=== PATIENT | female | born 1950 | race Caucasian/White ===

== ENCOUNTER → 2017-09-08 | Outpatient (CLI) | payer MEDICARE, MEDICAID, SELFPAY | PROVIDERS: Visit Provider Emergency Medicine | DX: R19.7 Diarrhea, unspecified (principal) | CPT/HCPCS: 87507 ==

== ENCOUNTER 2017-12-05 12:19 | Observation (INO) | payer MEDICARE, MEDICAID, SELFPAY ==
[2017-12-05] VITALS (7 sets, daily range): BP systolic 123–145; BP diastolic 73–84; PULSE 64–89; RESP 18–20; TEMP 36.6–37; O2SAT 91–100; BMI 24.9; BMI 23.0
--- NOTE | 2017-12-05 12:51 | XR_ITS ---
XR chest 2V HISTORY: ITS.REASON: cp. soa and cough. ORDERING PHYSICIAN: Jailyn Fuller MD PATIENT AGE: 67 years COMPARISON: 05/13/2017 FINDINGS: Cardiomegaly with pulmonary venous congestion consistent with CHF. There has been prior median sternotomy with bivalvular replacement. There is chronic blunting of the right CP angle. Curly B lines are present suggesting interstitial edema. No acute bony anomalies. Coronary artery stents are present. IMPRESSION: Congestive heart failure with interstitial edema. Postsurgical changes. Cardiac, evaluate response to left a message on her answering machine, and mechanical. Spleen measures
--- NOTE | 2017-12-05 12:52 | HMH.EDGENADL ---
ED Disposition Clinical Impression: Chest pain, CAD (coronary artery disease), A-fib, Congestive heart failure Disposition: Still a Patient Condition on Discharge: Fair Referrals: Zoltan Plata MD [Primary Care Provider] - - Critical Care Critical Care Time: No Attestation: On 12/05/17, the high probability of a clinically significant, sudden or life threatening deterioration of the following system(s) required my full and direct attention, intervention and personal management. The time I documented below is in addition to time spent performing reported procedures but includes the following listed in this critical care notation. Medical Decision Making - Medical Records Medical records reviewed: Yes: I reviewed the patient's medical records. Vital Signs: 12/05/17 12:19 12/05/17 13:19 Temperature 97.8 F Temperature Source Oral Pulse Rate [Right Brachial] 67 66 Respiratory Rate 18 20 Blood Pressure [Right Arm] 145/84 Blood Pressure Mean [Right Arm] 104 Blood Pressure Source [Right Arm] Automatic Cuff Automatic Cuff Blood Pressure Position [Right Arm] Sitting Supine 02 Sat by Pulse Oximetry 95 100 Oxygen Delivery Method Room Air Nasal Cannula Oxygen Flow Rate (LPM) 3 - Lab Data Lab Results 12/05/17 12:30: Magnesium 1.7 12/05/17 12:35: WBC 13.6 H, RBC 4.30, Hgb 9.0 L, Hct 31.6 L, MCV 73.4 L, MCH 20.9 L, MCHC 28.5 L, RDW 18.0 H, Plt Count 467 H, MPV 8.3, Neut % (Auto) 57.9, Lymph % (Auto) 32.5, Barry % (Auto) 8.0, Eos % (Auto) 1.1, Baso % (Auto) 0.6, Neut # (Auto) 7.9 H, Lymph # (Auto) 4.4, Barry # (Auto) 1.1 H, Eos # (Auto) 0.2, Baso # (Auto) 0.1 12/05/17 12:35: Sodium 135 L, Potassium 4.4, Chloride 102, Carbon Dioxide 26, Anion Gap 11.4, BUN 20 H, Creatinine 1.06 H, Estimated Creat Clear 53, Estimated GFR 52 L, Est GFR ( Amer) 63, Glucose 180 H, Calcium 9.1, Total Bilirubin 0.2, AST 21, ALT 18, Alkaline Phosphatase 180 H, Total Creatine Kinase 64, CK-MB (CK-2) 1.0, CK-MB (CK-2) Rel Index 1.6, Troponin I 0.02, Total Protein 8.5 H, Albumin 2.8 L, Globulin 5.7 H, Albumin/Globulin Ratio 0.5 L 12/05/17 12:35: PT 21.8 H, INR 2.00 H Result diagrams: 12/05/17 12:35 12/05/17 12:35 Orders (Tests/Meds): ED MEDICATIONS Discontinued Medications Generic Name Dose Route Start Last Admin Trade Name Freq PRN Reason Stop Dose Admin Furosemide 20 mg 12/05/17 14:07 Lasix 20mg/2ml Vial IV 12/05/17 14:08 ONCE ONE ORDERS Category Date Time Status XR chest 2V Stat Exams 12/05/17 12:51 Taken - Radiology Data #1 Image(s): Chest Image Reviewed: Yes I reviewed the patient's radiology image, Yes I discussed the image results w/the radiologist, Yes I reviewed the patient's radiology image w/the ED provider - ECG Data Tracing #1 Atrial fibrillation 100/min LVH changes ST segment changes suggestive of lateral ischemia. These were similar to prior findings on an EKG from September 30 but more accentuated may be because of her faster heart rate ECG initial impression date: 12/05/17 ECG initial impression time: 12:58 Normal Sinus Rhythm: No - Jose Angel Inquiry Pt receiving controlled substance: No Jose Angel was queried for this patient: No Medical Decision Making Narrative: I reviewed her labs and chest x-ray with Dr. Gomez. Her she is negative for myocardial infarction but she is positive for pulmonary vascular congestion on the chest x-ray. I called again the foraminal call for Dr. Grewal. She was admitted for Lasix. General Adult HPI - General Chief complaint: PAIN Stated complaint: CHEST PAIN Mode of Arrival: EMS Limitations: No Limitations Description of Symptoms (Recalled from ER Triage Doc. by RN): CHEST PAIN DESCRIBED PRESSURE - History of Present Illness HPI narrative: 67 years old white female with history of atrial fibrillations and blood clots on coumadin for anticoagulation. While she was talking to her shelter roommate she developed sudden ons
--- NOTE | 2017-12-05 12:55 | ED_ITS ---
ED Disposition Clinical Impression: Chest pain, CAD (coronary artery disease), A-fib, Congestive heart failure Disposition: Still a Patient Condition on Discharge: Fair Referrals: Zoltan Plata MD [Primary Care Provider] - - Critical Care Critical Care Time: No Attestation: On 12/05/17, the high probability of a clinically significant, sudden or life threatening deterioration of the following system(s) required my full and direct attention, intervention and personal management. The time I documented below is in addition to time spent performing reported procedures but includes the following listed in this critical care notation. Medical Decision Making - Medical Records Medical records reviewed: Yes: I reviewed the patient's medical records. Vital Signs: 12/05/17 12:19 12/05/17 13:19 Temperature 97.8 F Temperature Source Oral Pulse Rate [Right Brachial] 67 66 Respiratory Rate 18 20 Blood Pressure [Right Arm] 145/84 Blood Pressure Mean [Right Arm] 104 Blood Pressure Source [Right Arm] Automatic Cuff Automatic Cuff Blood Pressure Position [Right Arm] Sitting Supine 02 Sat by Pulse Oximetry 95 100 Oxygen Delivery Method Room Air Nasal Cannula Oxygen Flow Rate (LPM) 3 - Lab Data Lab Results 12/05/17 12:30: Magnesium 1.7 12/05/17 12:35: WBC 13.6 H, RBC 4.30, Hgb 9.0 L, Hct 31.6 L, MCV 73.4 L, MCH 20.9 L, MCHC 28.5 L, RDW 18.0 H, Plt Count 467 H, MPV 8.3, Neut % (Auto) 57.9, Lymph % (Auto) 32.5, Hendricks % (Auto) 8.0, Eos % (Auto) 1.1, Baso % (Auto) 0.6, Neut # (Auto) 7.9 H, Lymph # (Auto) 4.4, Hendricks # (Auto) 1.1 H, Eos # (Auto) 0.2, Baso # (Auto) 0.1 12/05/17 12:35: Sodium 135 L, Potassium 4.4, Chloride 102, Carbon Dioxide 26, Anion Gap 11.4, BUN 20 H, Creatinine 1.06 H, Estimated Creat Clear 53, Estimated GFR 52 L, Est GFR ( Amer) 63, Glucose 180 H, Calcium 9.1, Total Bilirubin 0.2, AST 21, ALT 18, Alkaline Phosphatase 180 H, Total Creatine Kinase 64, CK-MB (CK-2) 1.0, CK-MB (CK-2) Rel Index 1.6, Troponin I 0.02, Total Protein 8.5 H, Albumin 2.8 L, Globulin 5.7 H, Albumin/Globulin Ratio 0.5 L 12/05/17 12:35: PT 21.8 H, INR 2.00 H Result diagrams: 12/05/17 12:35 12/05/17 12:35 Orders (Tests/Meds): ED MEDICATIONS Discontinued Medications Generic Name Dose Route Start Last Admin Trade Name Freq PRN Reason Stop Dose Admin Furosemide 20 mg 12/05/17 14:07 Lasix 20mg/2ml Vial IV 12/05/17 14:08 ONCE ONE ORDERS Category Date Time Status XR chest 2V Stat Exams 12/05/17 12:51 Taken - Radiology Data #1 Image(s): Chest Image Reviewed: Yes I reviewed the patient's radiology image, Yes I discussed the image results w/the radiologist, Yes I reviewed the patient's radiology image w/the ED provider - ECG Data Tracing #1 Atrial fibrillation 100/min LVH changes ST segment changes suggestive of lateral ischemia. These were similar to prior findings on an EKG from September 30 but more accentuated may be because of her faster heart rate ECG initial impression date: 12/05/17 ECG initial impression time: 12:58 Normal Sinus Rhythm: No - Jose Angel Inquiry Pt receiving controlled substance: No Jose Angel was queried for this patient: No Medical Decision Making Narrative: I reviewed her labs and chest x-ray with Dr. Gomez. Her she is negative for myocardial infarction but she is p
[2017-12-05 13:02] LABS: Basophils # 0.1 K/mm3 (0-0.2); Basophils % 0.6 % (0.1-2.0); Eosinophils # 0.2 K/mm3 (0.0-0.4); Eosinophils % 1.1 % (0.1-12.0); Hematocrit 31.6 % (37.0-47.0); Lymphocytes # 4.4 K/mm3 (0.7-4.5); Lymphocytes % 32.5 K/mm3 (10-50); Mean Corpuscular HGB Conc 28.5 g/dL (31.8-35.4); Mean Corpuscular Hemoglobin 20.9 pg (27.0-31.2); Mean Corpuscular Volume 73.4 fl (81-99); Mean Platelet Volume 8.3 fl (7.4-10.4); Monocytes # 1.1 K/mm3 (0.1-1.0); Neutrophils # 7.9 K/mm3 (1.8-7.8); Neutrophils % 57.9 % (37.0-80.0); Platelet Count 467 K/mm3 (142-424); White Blood Count 13.6 K/mm3 (4.8-10.8)
[2017-12-05 13:05] LABS: Prothrombin Time 21.8 seconds (9.4-11.8)
[2017-12-05 13:15] LABS: Alanine Aminotransferase 18 U/L (12-78); Albumin Level 2.8 gm/dL (3.4-5.0); Albumin/Globulin Ratio 0.5 (1.1-1.8); Alkaline Phosphatase 180 U/L (46-116); Anion Gap 11.4 mEq/L (5-15); Aspartate Amino Transferase 21 U/L (15-37); Bilirubin,Total 0.2 mg/dL (0.2-1.0); Blood Urea Nitrogen 20 mg/dL (7-18); Calcium 9.1 mg/dL (8.5-10.1); Carbon Dioxide 26 mmol/L (21.0-32.0); Chloride 102 mmol/L (98-107); Creatine Kinase 64 U/L (26-192); Creatinine Clearance Estimated 53 mL/min (0-300); Creatinine,Serum 1.06 mg/dL (0.55-1.02); Estimated Glomerular Filt Rate 52 ml/min (>60); GFR (African American) 63 ML/MIN (>60); Globulin 5.7 gm/dl (1.3-3.2); Glucose 180 mg/dL (74-106); Potassium 4.4 mmoL/L (3.5-5.1); Sodium 135 mmol/L (136-145); Total Protein,Serum 8.5 gm/dL (6.4-8.2); Troponin I 0.02 ng/ml (0.00-0.06)
[2017-12-05 13:32] LABS: Magnesium 1.7 mg/dL (1.4-2.2)
[2017-12-05 13:40] LABS: CKMB Relative Index 1.6 U/L (0-4.0)
--- NOTE | 2017-12-05 15:51 | HMH.CARDCON2 ---
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 Patient relates a 2-3 week history of increasing fatigue and shortness of breath and a round of antibiotics for URI that ended 1-2 weeks ago. Patient does have a history of anemia requiring transfusion and was admitted to within the last 4 months for extensive workup for GI bleed. Patient cannot remember the results of her hospitalization at that time. Patient does have a congested cough. She is seen in the emergency department. Reported chest x-ray shows evidence of congestive heart failure. Patient currently is pain-free. Cardiology consulted for evaluation. Review of Systems - Constitutional Reports lack of energy, Reports weakness - *Cardiovascular Reports chest pain, Reports shortness of breath, Reports shortness of breath with activity - *Respiratory Reports chest congestion, Reports cough, Reports shortness of breath, Reports shortness of breath with activity [facility] History Medical History: Reports:: Atherosclerotic Heart Disease, Atrial Fibrillation, Congestive Heart Failure, Diabetes Mellitus Type 2, Valvular Heart Disease Other Medical History: Reports: Anemia Comment: 1. History of mechanical aortic and mitral valves, on chronic Coumadin therapy. A. Echocardiogram, 04/2017,1. Biatrial enlargement, normal left ventricular size, mild concentric left. ventricular hypertrophy, visually estimated ejection fraction of 40-45%, there is abnormal septal motion. 2. Normal functioning mechanical prosthetic valve in the aortic position. 3. Normal functioning mechanical prosthetic valve in the mitral position. 4. Mild tricuspid regurgitation. 5. No significant pericardial effusion noted. 6. The inferior vena cava is mildly dilated with normal inspiratory collapse. 2. History of atrial fibrillation, on Coumadin therapy. 3. History of hepatitis C, status post treatment. 4. History of encephalopathy. 5. Tobacco use ongoing. A. COPD. 6. Diabetes mellitus. A. Diabetic neuropathy, on Lyrica. 7. Coronary artery disease. A. Non-STEMI, 03/2016, subsequent bifurcating stent to left anterior descending. B. Abnormal stress test with inferior and apical ischemia, 02/2017. C. 3 drug-eluting stents to left anterior descending and RCA, 03/2017. 8. Chronic pain syndrome Meds Allergies Allergy/AdvReac Type Severity Reaction Status Date / Time gabapentin [GABAPENTIN] Allergy Unknown SWELLING Verified 12/05/17 12:26 Ynzfabx-Jbl-Gkb Reductase Allergy Unknown Verified 12/05/17 12:26 Inhibitor [GEOUPHO-LVR-CCX REDUCTASE INHIBITOR] Exam Vital signs and Labs for Last 24 Hours: Temp Pulse Resp BP Pulse Ox 97.8 F 89 20 128/78 95 12/05/17 12:19 12/05/17 14:00 12/05/17 14:00 12/05/17 14:00 12/05/17 14:00 - *Routine Neck Exam Absent: carotid bruit - *Routine Respiratory Exam Present: decreased breath sounds, rales, rhonchi, diminished air movement - *Routine Cardiovascular Exam Present: click, irregularly irregular - *Routine Extremities Exam Present: edema - *Routine Neurological Exam Present: alert, oriented X3, moving all extremities Results 12/05/17 12:35 12/05/17 12:35 EKG interpretations - EKG EKG shows: atrial fibrillation Assessment and Plan (1) CAD (coronary artery disease) Current visit: Yes Status: Acute Category: Medical Code(s): I25.10 - Atherosclerotic heart disease of [place] coronary artery without angina pectoris (2) Chest pain
--- NOTE | 2017-12-05 15:54 | P.CONS_ITS ---
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 Patient relates a 2-3 week history of increasing fatigue and shortness of breath and a round of antibiotics for URI that ended 1-2 weeks ago. Patient does have a history of anemia requiring transfusion and was admitted to within the last 4 months for extensive workup for GI bleed. Patient cannot remember the results of her hospitalization at that time. Patient does have a congested cough. She is seen in the emergency department. Reported chest x-ray shows evidence of congestive heart failure. Patient currently is pain-free. Cardiology consulted for evaluation. Review of Systems - Constitutional Reports lack of energy, Reports weakness - *Cardiovascular Reports chest pain, Reports shortness of breath, Reports shortness of breath with activity - *Respiratory Reports chest congestion, Reports cough, Reports shortness of breath, Reports shortness of breath with activity [facility] History Medical History: Reports:: Atherosclerotic Heart Disease, Atrial Fibrillation, Congestive Heart Failure, Diabetes Mellitus Type 2, Valvular Heart Disease Other Medical History: Reports: Anemia Comment: 1. History of mechanical aortic and mitral valves, on chronic Coumadin therapy. A. Echocardiogram, 04/2017,1. Biatrial enlargement, normal left ventricular size, mild concentric left. ventricular hypertrophy, visually estimated ejection fraction of 40-45%, there is abnormal septal motion. 2. Normal functioning mechanical prosthetic valve in the aortic position. 3. Normal functioning mechanical prosthetic valve in the mitral position. 4. Mild tricuspid regurgitation. 5. No significant pericardial effusion noted. 6. The inferior vena cava is mildly dilated with normal inspiratory collapse. 2. History of atrial fibrillation, on Coumadin therapy. 3. History of hepatitis C , status post treatment. 4. History of encephalopathy. 5. Tobacco use ongoing. A. COPD. 6. Diabetes mellitus. A. Diabetic neuropathy, on Lyrica. 7. Coronary artery disease. A. Non-STEMI, 03/2016, subsequent bifurcating stent to left anterior descending. B. Abnormal stress test with inferior and apical ischemia, 02/2017. C. 3 drug-eluting stents to left anterior descending and RCA, 03/2017. 8. Chronic pain syndrome Meds Allergies Allergy/AdvReac Type Severity Reaction Status Date / Time gabapentin [GABAPENTIN] Allergy Unknown SWELLING Verified 12/05/17 12:26 Xbjpbeh-Mca-Shg Reductase Allergy Unknown Verified 12/05/17 12:26 Inhibitor [ZPSJXJQ-ELZ-OIN REDUCTASE INHIBITOR] Exam Vital signs and Labs for Last 24 Hours: Temp Pulse Resp BP Pulse Ox 97.8 F 89 20 128/78 95 12/05/17 12:19 12/05/17 14:00 12/05/17 14:00 12/05/17 14:00 12/05/17 14:00 - *Routine Neck Exam Absent: carotid bruit - *Routine Respiratory Exam Present: decreased breath sounds, rales, rhonchi, diminished air movement - *Routine Cardiovascular Exam Present: click, irregularly irregular - *Routine Extremities Exam Present: edema
--- NOTE | 2017-12-05 16:46 | SW/DCPLANNER ---
MS DELONG PRESENTED INTO THE HOSPITAL WITH [facility] [facility] PROBLEMS, SHE IS A RESIDENT OF [facility] AND IS ON A MEDICAID BEDHOLD..DISPOSITION IS UNCERTAIN, CM WILL FOLLOW AND ASSIST INDICTED BY ...
--- NOTE | 2017-12-05 17:58 | PC.NURSE ---
PATIENT ADMITTED TODAY FOR WITH COMPLAINTS OF CHEST PAIN. PATIENTS PAIN WAS RELIEVED IN THE ER. PATIENT HAS NOT HAD ANY MORE CHEST PAIN SINCE COMING TO 2ND FLOOR. PATIENT TO HAVE AN ECHO AND BLOOD WORK AND OBSERVE OVER NIGHT. PATIENT DENIES ANY NEEDS, WILL CONTINUE TO MONITOR.
[2017-12-05 19:30] LABS: CKMB Relative Index 1.5 U/L (0-4.0); Creatine Kinase 61 U/L (26-192); Creatine Kinase MB 0.9 mg/ml (0.0-3.6); Troponin I 0.02 ng/ml (0.00-0.06)
[2017-12-06] VITALS (18 sets, daily range): BP systolic 118–173; BP diastolic 75–91; PULSE 47–104; RESP 18–24; TEMP 36.5–37.3; O2SAT 90–94; BMI 22.4
--- NOTE | 2017-12-06 03:13 | PC.NURSE ---
no changes noted since previous assessment, pt denies chest pain and SOA at this time, breath sounds are clear, bowel sounds are active, vss, pt has maintained O2 sats above 90 on room air, pt has rested well this shift, no acute distress noted at this time, call light in reach, will continue to monitor.
--- NOTE | 2017-12-06 06:04 | PC.NURSE ---
teds are off at this time
[2017-12-06 07:18] LABS: Basophils # 0.1 K/mm3 (0-0.2); Basophils % 0.5 % (0.1-2.0); Eosinophils # 0.1 K/mm3 (0.0-0.4); Eosinophils % 1.2 % (0.1-12.0); Hematocrit 33.1 % (37.0-47.0); Hemoglobin 9.3 g/dL (12.2-16.2); Lymphocytes # 2.9 K/mm3 (0.7-4.5); Lymphocytes % 28.9 K/mm3 (10-50); Mean Corpuscular Hemoglobin 20.4 pg (27.0-31.2); Mean Platelet Volume 7.2 fl (7.4-10.4); Monocytes # 0.9 K/mm3 (0.1-1.0); Monocytes % 8.7 % (1.7-9.3); Neutrophils # 6.1 K/mm3 (1.8-7.8); Neutrophils % 60.5 % (37.0-80.0); Platelet Count 444 K/mm3 (142-424); Red Blood Count 4.54 M/mm3 (4.20-5.40); White Blood Count 10.1 K/mm3 (4.8-10.8)
--- NOTE | 2017-12-06 07:32 | HMH.PHAVTE ---
[facility] Pharm[facility] VTE Monitoring - Patient Demographics Admission date: 12/05/17 Report Date: 12/06/17 Time: 07:32 Allergies/Adverse Reactions: Patient Allergies gabapentin [GABAPENTIN] Allergy (Unknown, Verified 12/05/17 12:26) SWELLING Fwypoew-Lym-Gds Reductase Inhibitor [SOWPSLS-XRT-PRH REDUCTASE INHIBITOR] Allergy (Unknown, Verified 12/05/17 12:26) Height: 1.65 m Weight: 60.951 kg Patient Problems: Current Active Problems Chest pain (Acute) CAD (coronary artery disease) (Acute) Congestive heart failure (Acute) Unspecified atrial fibrillation (Chronic) - VTE Risk Labs: VTE Related Lab Results Hgb 9.3 g/dL (12.2-16.2) L 12/06/17 06:20 Hct 33.1 % (37.0-47.0) L 12/06/17 06:20 Plt Count 444 K/mm3 (142-424) H 12/06/17 06:20 PT 21.8 seconds (9.4-11.8) H 12/05/17 12:35 INR 2.00 (0.9-1.1) H 12/05/17 12:35 BUN 20 mg/dL (7-18) H 12/05/17 12:35 Creatinine 1.06 mg/dL (0.55-1.02) H 12/05/17 12:35 Estimated Creat Clear 53 mL/min (0-300) 12/05/17 12:35 VTE Score: 1 VTE Risk Level: Very Low Risk - Prophylaxis VTE Prophylaxis Ordered?: Yes Types of VTE Prophylaxis: TEDS Knee High Location of Applied Device: Bilateral Lower Extremeties - VTE Diagnosis Confirmed Treatment or plan recommended: Continue Current Treatment
[2017-12-06 07:37] LABS: Anion Gap 13.2 mEq/L (5-15); Blood Urea Nitrogen 22 mg/dL (7-18); Carbon Dioxide 27 mmol/L (21.0-32.0); Chloride 102 mmol/L (98-107); Creatinine Clearance Estimated 42 mL/min (0-300); Creatinine,Serum 1.25 mg/dL (0.55-1.02); Estimated Glomerular Filt Rate 43 ml/min (>60); GFR (African American) 52 ML/MIN (>60); Magnesium 1.5 mg/dL (1.4-2.2); Potassium 4.2 mmoL/L (3.5-5.1); Sodium 138 mmol/L (136-145)
[2017-12-06 07:45] LABS: Glucose 199 mg/dL (74-106)
--- NOTE | 2017-12-06 08:55 | HMH.HP ---
*Admission Date: 12/05/17 *Chief complaint: chest pain *History of present illness: 67-year-old white female with history of mechanical aortic and mitral valves on chronic Coumadin therapy, coronary artery disease with coronary stenting most recently in May 2017, tobacco use discontinued 6 months ago and COPD presented to the emergency department for sudden onset of substernal chest tightness/pressure associated with shortness of breath. Patient relates a 2-3 week history of increasing fatigue and shortness of breath and a round of antibiotics for URI that ended 1-2 weeks ago. Patient does have a history of anemia requiring transfusion and was admitted to within the last 4 months for extensive workup for GI bleed. Patient cannot remember the results of her hospitalization at that time. Patient does have a congested cough. She is seen in the emergency department. Reported chest x-ray shows evidence of congestive heart failure. Patient currently is pain-free. Cardiology consulted for evaluation. [facility] History I have reviewed the patient's past medical history: Yes Medical History: Reports:: Atherosclerotic Heart Disease, Atrial Fibrillation, Congestive Heart Failure, Diabetes Mellitus Type 2, Valvular Heart Disease Other Medical History: Reports: Anemia Other Surgeries: Yes: Hysterectomy-Total, Other (LEFT HIP REPLACEMENT) - *Social History Smoking Status: Former smoker Tobacco Type: cigarettes Smoking End Date: 6 MONTHS AGO Alcohol Intake: never Occupational Status: disabled - Psychiatric History Expresses thoughts of harming self/others: None Suicide Plan Description: No Plan *Family Hx:: Asthma, Cancer, Coronary Artery Disease, Heart Attack, Hyperlipidemia, Hypertension, Stroke Review of Systems - Constitutional Denies chills, Denies fever(s), Denies headache(s) - Eyes Denies blind spots - ENT Denies abnormal hearing, Denies dizziness - *Cardiovascular Reports chest pain, Reports chest pain at rest - *Respiratory Reports chest congestion, Reports cough, Reports shortness of breath, Denies change in phlegm color - *Gastrointestinal Denies abdominal pain - *Genitourinary Denies abnormal periods - *Musculoskeletal Denies abnormal walking - Integumentary/Breasts Denies rash - *Neurologic Reports weakness, Denies abnormal walking - Psychiatric Denies abnormal sleep pattern - Endocrine Denies cold intolerance - Hematologic/Lymphatic Denies easy bleeding - Allergic/Immunologic Denies GI upset with certain foods Meds Home Medications Medication Instructions Recorded Confirmed Type Acetaminophen 500 mg PO NEEDED PRN 12/05/17 12/05/17 History Calcium Polycarbophil [Fiber] 625 mg PO DAILY 12/05/17 12/05/17 History Carboxymethylcellulose Sodium 1 each OP HS 12/05/17 12/05/17 History [Lubricating Plus] Cholecalciferol (Vitamin D3) 1,000 unit PO DAILY 12/05/17 12/05/17 History [Vitamin D3 1,000 Unit Cap] Cyclobenzaprine HCl 10 mg PO HS 12/05/17 12/05/17 History [Cyclobenzaprine 10mg Tab] Dicyclomine HCl [Bentyl 10mg 1 tab PO NEEDED PRN 12/05/17 12/05/17 History capsule] Digoxin [Digoxin 0.125mg Tablet] 125 mcg PO DAILY 12/05/17 12/05/17 History Docusate Sodium [Colace 250mg 1 tab PO DAILY 12/05/17 12/05/17 History capsule] Famotidine [Acid Controller] 20 mg PO BID 12/05/17 12/05/17 History Fluticasone Propionate [Flonase 1 spr NS DAILY 12/05/17 12/05/17 History 50mcg nasal spray 16gm] L. Acidophilus/L.bulgaricus 1 each PO TID 12/05/17 12/05/17 History [Floranex Tablet] PARoxetine HCl [Paroxetine HCl] 40 mg PO DAILY 12/05/17 12/05/17 History Phenol [Chloraseptic] 177 ml MM DAILY 12/05/17 12/05/17 History Polyethylene Glycol 3350 [Miralax 17 gm PO DAILY 12/05/17 12/05/17 History 17gm Packet] Pregabalin [Lyrica 75mg Cap] 75 mg PO DAILY 12/05/17 12/05/17 History dilTIAZem HCl [Diltiazem 180mg 180 mg PO BID 12/05/17 12/05/17 History 24Hr ER Cap] guaiFENesin [Marty
--- NOTE | 2017-12-06 09:00 | CA_ITS ---
PROCEDURE: 2-D M-mode and color Doppler study INDICATIONS FOR THE TEST: Chest pain+ COPD+ Heart Murmur+ Tobacco Smokingex Palpitations+ Fatigue+ Syncope Edema Hypertension+Diabetes Mellitus+ Rheumatic Fever+ SOB+ARORA+Obesity Hyperlipidemia+ Family History HD+ Additional History mechanical AV and MV, CAD, 40-45% ef echo 04/2017, Afib, RVR PATIENT INFORMATION HEIGHT: 65 WEIGHT: 134 GENDER: Female B/P: 128/78 2-D/M-MODE INTERPRETATION: 2-D MEASUREMENTS OBSERVED VALUES IN CMS Right Ventricular Dimension (RVDd) 2.2 Interventricular Septum (Thickness)(IVsd) 1.3 Left Ventricular Internal Dimensions(LVIDd) 5.1 Left Ventricular Posterior Wall (Thickness)(LVPWd) 1.3 Aortic Root 2.5 Aortic Cusp Separation 1.5 Left Atrial Dimensions (LAD) 4.5 2D 1. Left atrium is moderately enlarged, left ventricle is normal size, there is mild concentric left ventricular hypertrophy, visually estimated ejection fraction of 40-45% with no obvious regional wall motion abnormality. 2. The right atrium and right ventricle are mildly enlarged with normal contractility. 3. There is a mechanical valve noted in the aortic position, the valve is well seated 4. There is a mechanical valve sitting the mitral position, the valve is well seated 5. The tricuspid valve leaflets are minimally thickened. 6. The pulmonic valve is poorly visualized. 7. No significant pericardial effusion noted. DOPPLER INTERROGATION: 1. The maximum aortic out flow velocity across the prosthetic valve is 2.3 m/s, resulting in a mean gradient across valve of 10 mmHg, which is within physiological range for this type of valve, there is no significant aortic insufficiency seen. 2. The maximum mitral inflow velocity recorded study is 1.7 m/s, the catheter A valve area is 2.7 sq cm by pressure half time rheumatic, which does not represent any significant mitral inflow obstruction, there is mild mitral regurgitation 3. There is mild tricuspid regurgitation noted, calculated right ventricular systolic pressure is 52 mm of mildly consistent with moderate pulmonary hypertension. CONCLUSION: 1. Biatrial enlargement, normal left ventricular size, mild concentric left ventricular hypertrophy, visually estimated ejection fraction 40-45% with no obvious regional wall motion abnormality. 2. Normal functioning mechanical prosthetic valve in the aortic position without significant aortic outflow obstruction or aortic insufficiency 3. Normal functioning mechanical prosthetic valve in the mitral position without significant mitral inflow obstruction or mitral regurgitat
--- NOTE | 2017-12-06 10:38 | HMH.CARDPN2 ---
Subjective PN (PG) Date: 12/06/17 Time: 10:38 Principal diagnosis: chest pain, SOA Interval history: 87-year-old white female in bed this a.m. in no acute distress. Breathing has improved overnight. No further chest pain. Troponins have returned normal. Echocardiogram is being performed. PN Exam ([facility]) Vital signs: Temp Pulse Resp BP Pulse Ox 98.6 F 60 18 149/78 91 L 12/06/17 08:00 12/06/17 08:00 12/06/17 08:00 12/06/17 08:00 12/06/17 08:00 - Routine Respiratory Exam Comments: Approved air movement. - Routine Cardiovascular Exam Present: click, irregular rhythm - Routine Extremities Exam Absent: edema A/P Progress Note ([facility]) (1) CAD (coronary artery disease) Status: Acute Assessment and plan: Likely stable at this time. Troponins normal overnight. No further workup at this time. Current Visit: Yes (2) Chest pain Status: Acute Current Visit: Yes (3) Congestive heart failure Status: Acute Assessment and plan: Preliminary echocardiogram shows ejection in the 40-percent range which is consistent with previous echo in April of last year. Official reading regarding mechanical valves pending. Continue diuretic therapy. Current Visit: Yes (4) Unspecified atrial fibrillation Status: Chronic Current Visit: Yes (5) Cardiomyopathy, unspecified Status: Chronic Current Visit: No (6) Presence of prosthetic heart valve Status: Chronic Current Visit: No (7) Leg cramps Status: Acute Assessment and plan: Potassium level is normal but missing lower limits of normal will replace with 1 g of magnesium this is helps with the patient's leg cramps while on IV diuretic therapy. Current Visit: Yes
--- NOTE | 2017-12-06 10:42 | P.PN_ITS ---
Subjective PN (PG) Date: 12/06/17 Time: 10:38 Principal diagnosis: chest pain, SOA Interval history: 87-year-old white female in bed this a.m. in no acute distress. Breathing has improved overnight. No further chest pain. Troponins have returned normal. Echocardiogram is being performed. PN Exam ([facility]) Vital signs: Temp Pulse Resp BP Pulse Ox 98.6 F 60 18 149/78 91 L 12/06/17 08:00 12/06/17 08:00 12/06/17 08:00 12/06/17 08:00 12/06/17 08:00 - Routine Respiratory Exam Comments: Approved air movement. - Routine Cardiovascular Exam Present: click, irregular rhythm - Routine Extremities Exam Absent: edema A/P Progress Note ([facility]) (1) CAD (coronary artery disease) Status: Acute Assessment and plan: Likely stable at this time. Troponins normal overnight. No further workup at this time. Current Visit: Yes (2) Chest pain Status: Acute Current Visit: Yes (3) Congestive heart failure Status: Acute Assessment and plan: Preliminary echocardiogram shows ejection in the 40-percent range which is consistent with previous echo in April of last year. Official reading regarding mechanical valves pending. Continue diuretic therapy. Current Visit: Yes (4) Unspecified atrial fibrillation Status: Chronic Current Visit: Yes (5) Cardiomyopathy, unspecified Status: Chronic Current Visit: No (6) Presence of prosthetic heart valve Status: Chronic Current Visit: No (7) Leg cramps Status: Acute Assessment and plan: Potassium level is normal but missing lower limits of normal will replace with 1 g of magnesium this is helps with the patient's leg cramps while on IV diuretic therapy. Current Visit: Yes
--- NOTE | 2017-12-06 11:20 | PC.NURSE ---
Pt voiced concern before taking ordered one time neb treatment. didn't want to take because of her heart. Her nurse Michelle said she would call and maybe get her neb medication changed. She said she would call.
--- NOTE | 2017-12-06 12:44 | PC.NURSE ---
BLOOD BANK CALLED STATED PATIENT HAD ANTIBODIES IS SENDING TO [facility] FOR CROSSMATCH I CALLED PHARMACY WAITING ON MAGNESIUM AND TALKED WITH NENO AND SHE STATED TO GIVEN MAGNESIUM FIRST BEFORE BLOOD AND SHE WILL BRING OVER TO ME TALKED WITH MS. DELONG AND TOLD HER THEY WERE SENDING HER CROSSMATCH TO [facility] [place] AND SHE STATED THEY HAVE DONE THAT BEFORE AT 1223 BLOOD BANK CALLED BACK AND STATED THAT I COULD GO AHEAD AND GIVE BLOOD. MAGNESIUM IS INFUSING FOR APPROXIMATELY ONE HOUR. SARBJIT JEROME, MSN, RN
--- NOTE | 2017-12-06 13:05 | PC.NURSE ---
I TALKED WITH THE PATIENT RELATED TO STARTING ANOTHER IV PATIENT REFUSED TO BE STUCK AGAIN. I NOTIFIED MIRIAM MURGUIA, MARINE GEOLOGIST TODAY TO LET HER KNOW ABOUT THE TYPE AND CROSSMATCH. SARBJIT JEROME, MSN, RN ATTEMPTED TO CALL DR. PALOMARES'S OFFICE AND THERE WAS NO ANSWER. SARBJIT JEROME, MSN, RN
--- NOTE | 2017-12-06 16:37 | HMH.HPDC ---
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 Patient relates a 2-3 week history of increasing fatigue and shortness of breath and a round of antibiotics for URI that ended 1-2 weeks ago. Patient does have a history of anemia requiring transfusion and was admitted to within the last 4 months for extensive workup for GI bleed. Patient cannot remember the results of her hospitalization at that time. Patient does have a congested cough. She is seen in the emergency department. Reported chest x-ray shows evidence of congestive heart failure. Patient currently is pain-free. Cardiology consulted for evaluation. [facility] History I have reviewed the patient's past medical history: Yes Medical History: Reports:: Atherosclerotic Heart Disease, Atrial Fibrillation, Congestive Heart Failure, Diabetes Mellitus Type 2, Valvular Heart Disease Other Medical History: Reports: Anemia Other Surgeries: Yes: Hysterectomy-Total, Other (LEFT HIP REPLACEMENT) - *Social History Smoking Status: Former smoker Tobacco Type: cigarettes Smoking End Date: 6 MONTHS AGO Alcohol Intake: never Occupational Status: disabled - Psychiatric History Expresses thoughts of harming self/others: None Suicide Plan Description: No Plan *Family Hx:: Asthma, Cancer, Coronary Artery Disease, Heart Attack, Hyperlipidemia, Hypertension, Stroke Review of Systems - Constitutional Reports fatigue, Denies chills - Eyes Denies floaters - ENT Denies difficulty swallowing - *Cardiovascular Reports chest pain, Reports chest pain at rest, Reports shortness of breath, Denies leg swelling - *Respiratory Reports chest congestion, Reports cough - *Gastrointestinal Denies abdominal pain - *Genitourinary Denies frequent nighttime urination - *Musculoskeletal Denies body aches - Integumentary/Breasts Denies rash, Denies unusual bruising - *Neurologic Reports weakness, Denies dizziness - Psychiatric Denies lack of enjoyment - Endocrine Denies excessive sweating - Hematologic/Lymphatic Denies enlarged lymph nodes - Allergic/Immunologic Denies lip swelling Exam Vital signs and Labs for Last 24 Hours: Temp Pulse Resp BP Pulse Ox 98.2 F 85 20 128/79 92 L 12/06/17 15:20 12/06/17 15:20 12/06/17 15:20 12/06/17 15:20 12/06/17 15:20 Laboratory Results - last 24 hr 12/05/17 18:34: Total Creatine Kinase 61, CK-MB (CK-2) 0.9, CK-MB (CK-2) Rel Index 1.5, Troponin I 0.02 12/05/17 18:34: B-Natriuretic Peptide 595 H 12/06/17 06:20: WBC 10.1 D, RBC 4.54, Hgb 9.3 L, Hct 33.1 L, MCV 73.0 L, MCH 20.4 L, MCHC 28.0 L, RDW 18.0 H, Plt Count 444 H, MPV 7.2 L, Neut % (Auto) 60.5, Lymph % (Auto) 28.9, [place] % (Auto) 8.7, Eos % (Auto) 1.2, Baso % (Auto) 0.5, Neut # (Auto) 6.1, Lymph # (Auto) 2.9, [place] # (Auto) 0.9, Eos # (Auto) 0.1, Baso # (Auto) 0.1 12/06/17 06:20: Sodium 138, Potassium 4.2, Chloride 102, Carbon Dioxide 27, Anion Gap 13.2, BUN 22 H, Creatinine 1.25 H, Estimated Creat Clear 42, Estimated GFR 43 L, Est GFR ( Amer) 52 L, Glucose 199 H, Magnesium 1.5 D 12/06/17 09:30: Blood Type A Positive, Antibody Screen Negative, Crossmatch (AHG) See Detail I & O for Last 24 hours: Intake & Output 12/04/17 12/05/17 12/06/17 12/07/17 11:59 11:59 11:59 11:59 Intake Total 360 / 360 500 / 500 Balance 360 / 360 500 / 500 Weight 134 lb 6 oz 134 lb 5.948 oz - Constitutional no acute distress, thin - *Routine HEENT Exam Head: Present
[2017-12-06 18:25] LABS: Hematocrit 40.5 % (37.0-47.0)
[2017-12-06 18:30] LABS: Hemoglobin 11.6 g/dL (12.2-16.2)
--- NOTE | 2017-12-06 19:00 | PC.NURSE ---
PT FULL CODE, REPORT FROM [email or web address]
--- NOTE | 2017-12-06 19:57 | PC.NURSE ---
THIS IS A 67 YEAR OLD WHITE FEMALE THAT PRESENTED TO THE HOSPITAL WITH A DIAGNOSIS OF CHF, AND CP. SHE HAD A CONSULT WITH DR. MAGALLANES THIS AM AND ALSO AN ECHO CARDIOGRAM. SHE STATES SHE HAS 2 REPLACEMENT VALVES THE AORTA AND MITRAL. SHE STATES SHE HAS A HISTORY OF AFIB AND IS ON COUMADIN THERAPY. HER HGB WAS 9.3 TODAY AND WAS GIVEN ONE UNIT OF BLOOD PER ORDER. POST HGB WAS >11. SHE HAS DONE WELL TODAY WITH NO COMPLAINTS OF PAIN OR DISCOMFORT. SHE WAS ALSO ORDERED AND GIVEN MAGNESIUM TODAY IV FOR HER LEG CRAMPS. I CALLED AND LEFT A MESSAGE AT THE MD'S OFFICE TO LET THEM KNOW SHE REFUSED HER ALBUTEROL TREATMENT DUE TO THE SHAKINESS AND INCREASED HEARTRATE. SHE REQUESTED AN ALTERNATIVE MEDICINE. I TALKED WITH AJITH AT THE OFFICE AND SHE WOULD HAVE MICKEY GUTIERREZ FOLLOW UP. WILL CONTINUE TO MONITOR. SARBJIT JEROME, MSN, RN
[2017-12-07] VITALS: BP 132/62; PULSE 106; RESP 20; TEMP 36.8; O2SAT 92
[2017-12-07 04:00] VITALS: BP 146/75; PULSE 98; RESP 17; TEMP 36.9; O2SAT 91
--- NOTE | 2017-12-07 05:45 | PC.NURSE ---
PT SLEPT LONG INTERVALS THIS SHIFT. ALERT AND ORIENTED X4. RESPIRATIONS EVEN AND UNLABORED, BREATH SOUNDS EQUAL AND CLEAR T/O. IV SECURE AND PATENT SALINE LOCK. NO C/O CHEST PAIN OR SOA. NO OTHER DISCOMFORT REPORTED. PT STATES SHE IS DIABETIC AND TAKES INSULIN. SHE WASN'T COMPLETELY SURE OF TYPE, STATES ROJAS SHOULD HAVE SENT IT ON LIST, HOWEVER, I CHECKED HER ADMISSION HOME MEDICATIONS LIST, AND NO INSULIN LISTED. PT DOES NOT CURRENTLY HAVE DIABETIC DIET, OR FINGER STICKS/SS. WILL PASS THIS ON FOR MD IN AM. PT STABLE. WILL CONTINUE TO MONITOR. REPORT TO BE GIVEN TO ONCOMING NURSE.
[2017-12-07 08:00] VITALS: PULSE 91; RESP 17; O2SAT 98
[2017-12-07 08:42] VITALS: BP 116/64; PULSE 92; RESP 18; TEMP 36.7; O2SAT 94
[2017-12-07 09:16] VITALS: PULSE 98
[2017-12-07 11:24] VITALS: BP 137/56; PULSE 81; RESP 16; TEMP 36.7; O2SAT 94
== END 2017-12-07 14:23 ==
LOC: ER 12:59 → 2ND 16:27
PROVIDERS: Nurse Practitioner Family; Physician Assistant; Admitting Provider Emergency Medicine; Emergency Provider Emergency Medicine; Visit Provider Emergency Medicine
DX: I50.9 Heart failure, unspecified (principal); I25.10 Atherosclerotic heart disease of native coronary artery without angina pectoris; J44.9 Chronic obstructive pulmonary disease, unspecified; E11.40 Type 2 diabetes mellitus with diabetic neuropathy, unspecified; I25.2 Old myocardial infarction; G89.4 Chronic pain syndrome; I42.9 Cardiomyopathy, unspecified; I48.2 Chronic atrial fibrillation; D64.9 Anemia, unspecified; R25.2 Cramp and spasm; Z79.01 Long term (current) use of anticoagulants; Z86.19 Personal history of other infectious and parasitic diseases; Z96.642 Presence of left artificial hip joint; Z91.09 Other allergy status, other than to drugs and biological substances; Z95.2 Presence of prosthetic heart valve; Z95.5 Presence of coronary angioplasty implant and graft; Z90.710 Acquired absence of both cervix and uterus; Z87.891 Personal history of nicotine dependence; Z82.49 Family history of ischemic heart disease and other diseases of the circulatory system; Z80.9 Family history of malignant neoplasm, unspecified; Z83.49 Family history of other endocrine, nutritional and metabolic diseases; Z82.3 Family history of stroke; Z82.5 Family history of asthma and other chronic lower respiratory diseases; R00.2 Palpitations; R06.02 Shortness of breath; R07.9 Chest pain, unspecified
CPT/HCPCS: 36430; 36415; 71046; 80048; 80053; 82550; 82553; 83735; 83880; 84484; 85014; 85018; 85025; 85610; 86850; 93005; 93306; 99282; G0378; P9016

== ENCOUNTER 2018-02-03 07:35 | Emergency (ER) | payer MEDICARE, MEDICAID, SELFPAY ==
[2018-02-03 07:35] VITALS: BP 113/52; PULSE 81; RESP 20; TEMP 36.7; O2SAT 96
[2018-02-03 07:36] VITALS: BP 131/80; RESP 18; TEMP 36.8; O2SAT 94; BMI 20.5
--- NOTE | 2018-02-03 07:41 | CT_ITS ---
CT head/brain wo con COMPARISON: Noncontrast CT scan of brain 02/02/2018April and October [address] also utilized HISTORY: Altered mental status. mental status changes TECHNIQUE: Multiaxial scans obtained from base skull to the vertex and were performed without IV contrast. FINDINGS: . There is a new low-density area involving hypodensity involving the right rey radiata and extending towards the right basal ganglia/right lentiform nucleus. This highly suspect for area of ischemia/likely early acute evolving infarction this appearance as it is a change since yesterday CT.. There is no intracranial hemorrhage nor mass effect. There are other stable subtle low-density changes throughout the deep white matter of cerebral hemispheres reflecting chronic small vessel deep white matter ischemic changes is seen on yesterday's study. Some mild diffuse cerebral atrophy. Again stable hyperdense are not enlarged pituitary noted similar to October & April [address] study The posterior fossa appears satisfactory stable . Diffuse generous mucoperiosteal thickening left maxillary sinus. Defect medial wall the left maxillary sinus.. The mastoids and middle ear and IACs unremarkable.. Skull intact. IMPRESSION:. ======= 1. Acute appearing infarct involving the right rey radiata and lentiform nucleus. New low-density changes here compared to yesterday's study
--- NOTE | 2018-02-03 07:41 | XR_ITS ---
XR chest portable Ordering Physician: Fei Akhtar MD Patient Age: 67 years: Female HISTORY: ITS.REASON: ams mental status changes TECHNIQUE: AP portable upright chest COMPARISON :PA and lateral chest 02/02/2015 and 2 and December 2017 FINDINGS High contrast digital technique accentuates markings When technique is considered I see no discrete new findings. The lungs appear clear. The heart is mildly enlarged with aortic and mitral valve replacement evident. Vascularity appears upper normal. Perhaps mild vascular engorgement but no overt CHF. Sternotomy wire sutures. Coronary artery stent in place most evident right coronary no pleural effusion. No pneumothorax. IMPRESSION: ====== . 1. No significant interval change when technique is considered. 2.. Cardiomegaly. Sternotomy and valve replacements. Coronary artery stent. 3. Pulmonary vascularity upper normal but no overt CHF
--- NOTE | 2018-02-03 07:51 | PC.NURSE ---
pt to CT.
[2018-02-03 07:54] LABS: Basophils # 0.1 K/mm3 (0-0.2); Basophils % 0.5 % (0.1-2.0); Eosinophils # 0.4 K/mm3 (0.0-0.4); Eosinophils % 3.4 % (0.1-12.0); Lymphocytes # 3.1 K/mm3 (0.7-4.5); Lymphocytes % 30.2 K/mm3 (10-50); Mean Corpuscular HGB Conc 28.1 g/dL (31.8-35.4); Mean Corpuscular Hemoglobin 19.6 pg (27.0-31.2); Mean Corpuscular Volume 69.8 fl (81-99); Mean Platelet Volume 7.7 fl (7.4-10.4); Monocytes # 0.7 K/mm3 (0.1-1.0); Monocytes % 7.1 % (1.7-9.3); Neutrophils # 6.1 K/mm3 (1.8-7.8); Neutrophils % 58.7 % (37.0-80.0); Platelet Count 466 K/mm3 (142-424); Red Cell Distribution Width 20.4 % (11.5-17.5); White Blood Count 10.4 K/mm3 (4.8-10.8)
[2018-02-03 08:04] LABS: INR 3.37 (0.9-1.1); Prothrombin Time 36.9 seconds (9.4-11.8)
[2018-02-03 08:09] LABS: Hematocrit 34.3 % (37.0-47.0); Hemoglobin 9.8 g/dL (12.2-16.2); Red Blood Count 4.91 M/mm3 (4.20-5.40)
[2018-02-03 08:21] LABS: Alanine Aminotransferase 30 U/L (12-78); Albumin Level 3.2 gm/dL (3.4-5.0); Albumin/Globulin Ratio 0.5 (1.1-1.8); Alkaline Phosphatase 166 U/L (46-116); Anion Gap 12.8 mEq/L (5-15); Bilirubin,Total 0.2 mg/dL (0.2-1.0); Blood Urea Nitrogen 39 mg/dL (7-18); Calcium 10.3 mg/dL (8.5-10.1); Carbon Dioxide 28 mmol/L (21.0-32.0); Chloride 101 mmol/L (98-107); Creatine Kinase 54 U/L (26-192); Creatinine Clearance Estimated 28 mL/min (0-300); Creatinine,Serum 1.66 mg/dL (0.55-1.02); Estimated Glomerular Filt Rate 31 ml/min (>60); GFR (African American) 37 ML/MIN (>60); Globulin 6.2 gm/dl (1.3-3.2); Glucose 228 mg/dL (74-106); Sodium 137 mmol/L (136-145); Total Protein,Serum 9.4 gm/dL (6.4-8.2); Troponin I < 0.02 ng/ml (0.00-0.06)
[2018-02-03 08:22] LABS: Appearance,Urine CLEAR (Clear); Bilirubin,Urine Negative (Negative); Blood, Urine Negative (Negative); Color,Urine YELLOW (Yellow); Glucose,Urine (UA) Negative (Negative); Ketones,Urine Negative (Negative); Leukocyte Esterase,Urine Negative (Negative); Microscopic, Urine URINE MICROSCOPIC (MICROSCOPIC); Nitrate,Urine Negative (Negative); Protein,Urine 2+ (Negative); Urobilinogen,Urine 0.2 EU/dl (0.2)
[2018-02-03 08:31] LABS: Bacteria,Urine Trace /lpf; Mucus,Urine Trace /lpf; RBC,Urine Occasional #/hpf (0-3); WBC,Urine Occasional #/hpf (0-3)
[2018-02-03 08:32] LABS: Hyaline Casts,Urine Occasional #/lpf (0)
[2018-02-03 08:33] LABS: Ammonia < 10 umol/L (19-54)
[2018-02-03 08:36] LABS: Aspartate Amino Transferase 32 U/L (15-37)
[2018-02-03 08:37] LABS: Potassium 4.8 mmoL/L (3.5-5.1)
--- NOTE | 2018-02-03 08:37 | PC.NURSE ---
Dr monge spoke with MEG.
--- NOTE | 2018-02-03 08:37 | HMH.EDWEAK ---
ED Disposition Clinical Impression: Acute CVA (cerebrovascular accident) Disposition: Xfer Short-Term Hosp Condition on Discharge: Fair Referrals: Sorin Grewal MD [Primary Care Provider] - Forms: Transfer Record - ED Time of Disposition: 08:53 - Critical Care Critical Care Time: Yes Attestation: On 02/03/18, the high probability of a clinically significant, sudden or life threatening deterioration of the following system(s) required my full and direct attention, intervention and personal management. The time I documented below is in addition to time spent performing reported procedures but includes the following listed in this critical care notation. Vital system(s) involved:: Central Nervous System My critical care processes included: Assessment & monitoring of V/S, Initial and Re-exams, Data Review/Interpretation, Coordinating Care, Medication Orders and management, Documentation Medical Decision Making - Medical Records Medical records reviewed: Yes: I reviewed the patient's medical records. - Jose Angel Inquiry Pt receiving controlled substance: No Vital Signs: 02/03/18 07:35 02/03/18 07:36 02/03/18 09:27 Temperature 98.1 F 98.2 F 98.4 F Temperature Source Oral Oral Oral Pulse Rate 85 Pulse Rate [Left Radial] 81 Respiratory Rate 20 18 18 Blood Pressure 132/76 Blood Pressure [Right Arm] 113/52 131/80 Blood Pressure Mean [Right Arm] 72 97 Blood Pressure Source Automatic Cuff Blood Pressure Source [Right Arm] Automatic Cuff Blood Pressure Position Supine Blood Pressure Position [Right Arm] Supine Sitting 02 Sat by Pulse Oximetry 96 94 L Oxygen Delivery Method Room Air Room Air Room Air - Lab Data Lab results reviewed: Yes: I reviewed the patient's lab results. Lab Results 02/03/18 07:45: WBC 10.4, RBC 4.91, Hgb 9.8 L, Hct 34.3 L, MCV 69.8 L, MCH 19.6 L, MCHC 28.1 L, RDW 20.4 H, Plt Count 466 H, MPV 7.7, Neut % (Auto) 58.7, Lymph % (Auto) 30.2, [place] % (Auto) 7.1, Eos % (Auto) 3.4, Baso % (Auto) 0.5, Neut # (Auto) 6.1, Lymph # (Auto) 3.1, [place] # (Auto) 0.7, Eos # (Auto) 0.4, Baso # (Auto) 0.1 02/03/18 07:45: Sodium 137, Potassium 4.8, Chloride 101, Carbon Dioxide 28, Anion Gap 12.8, BUN 39 H, Creatinine 1.66 H, Estimated Creat Clear 28, Estimated GFR 31 L, Est GFR ( Amer) 37 L, Glucose 228 H, Calcium 10.3 H, Total Bilirubin 0.2, AST 32, ALT 30, Alkaline Phosphatase 166 H, Total Creatine Kinase 54, CK-MB (CK-2) 0.8, CK-MB (CK-2) Rel Index 1.5, Troponin I < 0.02, Total Protein 9.4 H, Albumin 3.2 L, Globulin 6.2 H, Albumin/Globulin Ratio 0.5 L 02/03/18 07:45: PT 36.9 H, INR 3.37 H 02/03/18 08:10: Ammonia < 10 L 02/03/18 08:20: Urine Color Yellow, Urine Appearance Clear, Urine pH 6.0, Ur Specific [place] 1.020, Urine Protein 2+, Urine Glucose (UA) Negative, Urine Ketones Negative, Urine Blood Negative, Urine Nitrate Negative, Urine Bilirubin Negative, Urine Urobilinogen 0.2, Ur Leukocyte Esterase Negative, Urine RBC Occasional, Urine WBC Occasional, Urine Bacteria Trace, Hyaline Casts Occasional, Urine Mucus Trace Result diagrams: 02/03/18 07:45 02/03/18 07:45 Orders (Tests/Meds): ORDERS Category Date Time Status CT head/brain wo con Stat Cat Scan 02/03/18 07:41 Taken XR chest portable Stat Exams 02/03/18 07:41 Taken ABG [Arterial Blood Gas] Stat RT 02/03/18 07:44 Ordered - CT Data CT Scan: Head Time Received: 08:[address] Reviewed: Yes: I have reviewed the patient's CT results, I discussed the CT results w/the radiologist, I have viewed the radiologist's interpretation Findings Narrative: right acute basal ganglia infarct - meléndez din by [facility] (d/w radiologist absence management consultant). - ECG Data Tracing #1 I reviewed this ECG and interpreted as documented below: Normal sinus rhythm, heart rate 83, ST depression in 1, aVL, V3 through V6. Also evidence of left ventricular hypertrophy. ECG initial impression time: 07:49 Normal Sinus Rhythm: Yes Chamber hypert
[2018-02-03 08:43] LABS: CKMB Relative Index 1.5 U/L (0-4.0); Creatine Kinase MB 0.8 ng/ml (0.0-3.6)
--- NOTE | 2018-02-03 08:57 | PC.NURSE ---
dr Akhtar spoke with Dr Kelly at
[2018-02-03 09:27] VITALS: BP 132/76; PULSE 85; RESP 18; TEMP 36.9; O2SAT 95
== END 2018-02-03 09:27 | disposition short-term general hospital (02) ==
PROVIDERS: Emergency Provider Emergency Medicine; PCP Emergency Medicine
DX: I63.9 Cerebral infarction, unspecified (principal); E11.65 Type 2 diabetes mellitus with hyperglycemia; Z79.4 Long term (current) use of insulin; I48.2 Chronic atrial fibrillation; I50.9 Heart failure, unspecified
CPT/HCPCS: 36415; 70450; 71045; 80053; 81001; 82140; 82550; 82553; 84484; 85025; 85610; 93005; 96374; 99283

== ENCOUNTER → 2018-04-14 13:04 | Outpatient (POV) | payer MEDICARE, MEDICAID, SELFPAY ==
[2018-04-14 14:25] LABS: INR 1.85 (0.9-1.1); Prothrombin Time 20.1 seconds (9.4-11.8)
[2018-04-14 14:28] LABS: Basophils # 0.1 K/mm3 (0-0.2); Basophils % 0.4 % (0.1-2.0); Eosinophils # 0.2 K/mm3 (0.0-0.4); Eosinophils % 1.9 % (0.1-12.0); Hematocrit 37.6 % (37.0-47.0); Hemoglobin 11.3 g/dL (12.2-16.2); Lymphocytes # 2.6 K/mm3 (0.7-4.5); Lymphocytes % 25.5 K/mm3 (10-50); Mean Corpuscular HGB Conc 30.1 g/dL (31.8-35.4); Mean Corpuscular Hemoglobin 23.9 pg (27.0-31.2); Mean Corpuscular Volume 79.5 fl (81-99); Mean Platelet Volume 7.8 fl (7.4-10.4); Monocytes # 0.5 K/mm3 (0.1-1.0); Monocytes % 5.2 % (1.7-9.3); Neutrophils # 6.8 K/mm3 (1.8-7.8); Neutrophils % 66.9 % (37.0-80.0); Platelet Count 506 K/mm3 (142-424); Red Blood Count 4.73 M/mm3 (4.20-5.40); Red Cell Distribution Width 21.5 % (11.5-17.5); White Blood Count 10.2 K/mm3 (4.8-10.8)
[2018-04-14 14:29] LABS: Ammonia 23 umol/L (19-54)
[2018-04-14 15:16] LABS: Alanine Aminotransferase 55 U/L (12-78); Albumin Level 3.2 gm/dL (3.4-5.0); Albumin/Globulin Ratio 0.7 (1.1-1.8); Alkaline Phosphatase 187 U/L (46-116); Anion Gap 14.3 mEq/L (5-15); Aspartate Amino Transferase 41 U/L (15-37); Bilirubin,Total 0.3 mg/dL (0.2-1.0); Blood Urea Nitrogen 52 mg/dL (7-18); Calcium 10.2 mg/dL (8.5-10.1); Carbon Dioxide 28 mmol/L (21.0-32.0); Chloride 95 mmol/L (98-107); Creatinine,Serum 1.86 mg/dL (0.55-1.02); Estimated Glomerular Filt Rate 27 ml/min (>60); GFR (African American) 33 ML/MIN (>60); Globulin 4.5 gm/dl (1.3-3.2); Glucose 255 mg/dL (74-106); Potassium 5.3 mmoL/L (3.5-5.1); Sodium 132 mmol/L (136-145); Total Protein,Serum 7.7 gm/dL (6.4-8.2)
[2018-04-15 10:09] LABS: AFP, Tumor Marker 3.2 ng/mL (0.0-8.3)
== END ==
PROVIDERS: Visit Provider Nurse Practitioner Acute Care
DX: B18.2 Chronic viral hepatitis C (principal); K74.69 Other cirrhosis of liver
CPT/HCPCS: 36415; 80053; 82105; 82140; 85025; 85610; 87522

== ENCOUNTER 2018-04-29 15:37 | Emergency (ER) | payer MEDICARE, MEDICAID, SELFPAY ==
[2018-04-29 15:37] VITALS: BP 139/66; BP 180/96; PULSE 58; RESP 20; TEMP 36.2; O2SAT 98; BMI 22.8
--- NOTE | 2018-04-29 15:38 | CT_ITS ---
CT head/brain wo con HISTORY: Altered mental status, slurred speech, ITS.REASON: ams and slurred speech ORDERING PHYSICIAN: Jailyn Fuller MD PATIENT AGE: 68 years COMPARISON: 02/03/2018 TECHNIQUE: Axial images obtained without contrast. Brain and bone windows reviewed. All CT scans at the facility use one or more dose reduction, viz: automated exposure control; ma/kV adjustment per patient size (including targeted exams where dose is matched to indication; i.e. head); or iterative reconstruction technique. FINDINGS: Encephalomalacia changes are present in the right frontal area, right temporal lobe, and right basal ganglia with areas of cystic encephalomalacia in the right basal ganglia consistent with areas of infarction. No intracranial hemorrhage. No midline shift or mass effect. Atrophy with periventricular ischemic gliotic changes. 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 No acute finding There is no evidence of intracranial hemorrhage, focal mass, or acute territorial infarction. A negative CT does not exclude an acute CVA. A follow-up head CT or MRI is recommended if neurological symptoms persist
--- NOTE | 2018-04-29 15:40 | HMH.EDWEAK ---
ED Disposition Clinical Impression: CVA (cerebral vascular accident), Slurred speech, Hepatitis C virus, History of Coumadin therapy Disposition: Xfer Short-Term Hosp Condition on Discharge: Fair Instructions: DI for Altered Mental Status Referrals: Provider,Referral, [Primary Care Provider] - - Critical Care Critical Care Time: No Attestation: On , the high probability of a clinically significant, sudden or life threatening deterioration of the following system(s) required my full and direct attention, intervention and personal management. The time I documented below is in addition to time spent performing reported procedures but includes the following listed in this critical care notation. Medical Decision Making - Jose Angel Inquiry Pt receiving controlled substance: No Jose Angel was queried for this patient: No Vital Signs: 04/29/18 15:37 Temperature 97.2 F L Temperature Source Axillary Pulse Rate [Left Radial] 58 L Respiratory Rate 20 Blood Pressure [Right Arm] 139/66 Blood Pressure Mean [Right Arm] 90 Blood Pressure Source [Right Arm] Automatic Cuff Blood Pressure Position [Right Arm] Sitting 02 Sat by Pulse Oximetry 98 Oxygen Delivery Method Room Air - Lab Data Lab Results 04/29/18 14:42: WBC 11.2 H, RBC 4.33, Hgb 10.4 L, Hct 34.5 L, MCV 79.8 L, MCH 24.1 L, MCHC 30.2 L, RDW 21.2 H, Plt Count 526 H, MPV 7.5, Neut % (Auto) 51.5, Lymph % (Auto) 37.1, [place] % (Auto) 8.3, Eos % (Auto) 2.4, Baso % (Auto) 0.6, Neut # (Auto) 5.8, Lymph # (Auto) 4.1, [place] # (Auto) 0.9, Eos # (Auto) 0.3, Baso # (Auto) 0.1 04/29/18 14:42: PT 15.6 H, INR 1.53 H, APTT 37.3 H D 04/29/18 14:42: Sodium 126 L, Potassium 5.2 H, Chloride 94 L, Carbon Dioxide 25, Anion Gap 12.2, BUN 62 H, Creatinine 2.07 H, Estimated Creat Clear 28, Estimated GFR 24 L, Est GFR ( Amer) 29 L, Glucose 82, Calcium 9.7, Magnesium 2.0, Total Bilirubin 0.4, AST 45 H, ALT 68, Alkaline Phosphatase 154 H, Total Creatine Kinase 79, CK-MB (CK-2) 2.2 D, CK-MB (CK-2) Rel Index 2.8, Troponin I 0.03, Total Protein 8.0, Albumin 3.3 L, Globulin 4.7 H, Albumin/Globulin Ratio 0.7 L, Digoxin 1.17 Result diagrams: 04/29/18 14:42 04/29/18 14:42 Orders (Tests/Meds): ORDERS Category Date Time Status CT head/brain wo con Stat Cat Scan 04/29/18 15:38 Taken XR chest AP Stat Exams 04/29/18 15:47 Taken Drug Screen,Urine Stat Lab 04/29/18 15:38 Ordered Urinalysis and Microscopic Stat Lab 04/29/18 15:38 Ordered ECG Request by /Selene Stat Y 04/29/18 15:38 Stop Req - Radiology Data #1 Image(s): Chest Image Reviewed: Yes I reviewed the patient's radiology image Preliminary Findings: Abnormal Postop changes no acute findings no widened mediastinum. - CT Data CT Scan: Head Time Received: 16:[address] Reviewed: Yes: I have viewed the radiologist's interpretation Preliminary Findings: Abnormal Findings Narrative: See official report. - ECG Data Tracing #1 Atrial fibrillation with slow ventricular response Q-wave in anterior leads ST segment depression in the lateral lead with interval improvement a prior EKGs that is done on December 05, 2017 ECG initial impression date: 04/29/18 ECG initial impression time: 16:36 Medical Decision Narrative: I spoke with the senior living obtained timeline events it seems like she started at 1340 and worsened at 1400. [address] report with [address]. Berry. [address] Adama osborne stroke attending at [facility] who accepted the patient, at this point with the patient's blood pressure variation possible vascular abnormality without widened mediastinum and Coumadin therapy she is not a candidate for TPA. Weakness HPI - General Stated complaint: AMS Time Seen by Provider: 04/29/18 15:37 - History of Present Illness HPI Narrative: 68 years old white female [facility] resident, she is well known multiple medical problems including CVA on Coumadin therapy and hepatitis
--- NOTE | 2018-04-29 15:45 | ED_ITS ---
ED Disposition Clinical Impression: CVA (cerebral vascular accident), Slurred speech, Hepatitis C virus, History of Coumadin therapy Disposition: Xfer Short-Term Hosp Condition on Discharge: Fair Instructions: DI for Altered Mental Status Referrals: Provider,Referral, [Primary Care Provider] - - Critical Care Critical Care Time: No Attestation: On , the high probability of a clinically significant, sudden or life threatening deterioration of the following system(s) required my full and direct attention, intervention and personal management. The time I documented below is in addition to time spent performing reported procedures but includes the following listed in this critical care notation. Medical Decision Making - Jose Angel Inquiry Pt receiving controlled substance: No Jose Angel was queried for this patient: No Vital Signs: 04/29/18 15:37 Temperature 97.2 F L Temperature Source Axillary Pulse Rate [Left Radial] 58 L Respiratory Rate 20 Blood Pressure [Right Arm] 139/66 Blood Pressure Mean [Right Arm] 90 Blood Pressure Source [Right Arm] Automatic Cuff Blood Pressure Position [Right Arm] Sitting 02 Sat by Pulse Oximetry 98 Oxygen Delivery Method Room Air - Lab Data Lab Results 04/29/18 14:42: WBC 11.2 H, RBC 4.33, Hgb 10.4 L, Hct 34.5 L, MCV 79.8 L, MCH 24.1 L, MCHC 30.2 L, RDW 21.2 H, Plt Count 526 H, MPV 7.5, Neut % (Auto) 51.5, Lymph % (Auto) 37.1, [place] % (Auto) 8.3, Eos % (Auto) 2.4, Baso % (Auto) 0.6, Neut # (Auto) 5.8, Lymph # (Auto) 4.1, [place] # (Auto) 0.9, Eos # (Auto) 0.3, Baso # (Auto) 0.1 04/29/18 14:42: PT 15.6 H, INR 1.53 H, APTT 37.3 H D 04/29/18 14:42: Sodium 126 L, Potassium 5.2 H, Chloride 94 L, Carbon Dioxide 25 , Anion Gap 12.2, BUN 62 H, Creatinine 2.07 H, Estimated Creat Clear 28, Estimated GFR 24 L, Est GFR ( Amer) 29 L, Glucose 82, Calcium 9.7, Magnesium 2.0, Total Bilirubin 0.4, AST 45 H, ALT 68, Alkaline Phosphatase 154 H , Total Creatine Kinase 79, CK-MB (CK-2) 2.2 D, CK-MB (CK-2) Rel Index 2.8, Troponin I 0.03, Total Protein 8.0, Albumin 3.3 L, Globulin 4.7 H, Albumin/ Globulin Ratio 0.7 L, Digoxin 1.17 Result diagrams: 04/29/18 14:42 04/29/18 14:42 Orders (Tests/Meds): ORDERS Category Date Time Status CT head/brain wo con Stat Cat Scan 04/29/18 15:38 Taken XR chest AP Stat Exams 04/29/18 15:47 Taken Drug Screen,Urine Stat Lab 04/29/18 15:38 Ordered Urinalysis and Microscopic Stat Lab 04/29/18 15:38 Ordered ECG Request by /Selene Stat Y 04/29/18 15:38 Stop Req - Radiology Data #1 Image(s): Chest Image Reviewed: Yes I reviewed the patient's radiology image Preliminary Findings: Abnormal Postop changes no acute findings no widened mediastinum. - CT Data CT Scan: Head Time Received: 16:[address] Reviewed: Yes: I have viewed the radiologist's interpretation Preliminary Findings: Abnormal Findings Narrative: See official report. - ECG Data Tracing #1 Atrial fibrillation with slow ventricular response Q-wave in anterior leads ST segment depression in the lateral lead with interval improvement a prior EKGs that is done on December 05, 2017 ECG initial impression date: 04/29/18 ECG initial impression time: 16:36 Medical Decision Narrative: I spoke with the custodial obtained timeline events it seems like she started at 1340 and worsened at 1400. 1615 I reviewed stat
--- NOTE | 2018-04-29 15:47 | XR_ITS ---
XR chest AP HISTORY: Slurred speech, altered mental status ITS.REASON: ams ORDERING PHYSICIAN: Jailyn Fuller MD PATIENT AGE: 68 years COMPARISON: 02/03/2018 FINDINGS: There is cardiomegaly. There has been prior mitral and aortic valve replacement. Along with coronary artery stents which are calcified on the right. No CHF. Lungs are free of acute infiltrate. No acute bony anomalies. IMPRESSION: Cardiomegaly with postsurgical change, no acute finding
[2018-04-29 15:53] LABS: Basophils # 0.1 K/mm3 (0-0.2); Basophils % 0.6 % (0.1-2.0); Eosinophils # 0.3 K/mm3 (0.0-0.4); Eosinophils % 2.4 % (0.1-12.0); Hematocrit 34.5 % (37.0-47.0); Hemoglobin 10.4 g/dL (12.2-16.2); Lymphocytes # 4.1 K/mm3 (0.7-4.5); Lymphocytes % 37.1 K/mm3 (10-50); Mean Corpuscular HGB Conc 30.2 g/dL (31.8-35.4); Mean Corpuscular Hemoglobin 24.1 pg (27.0-31.2); Mean Corpuscular Volume 79.8 fl (81-99); Mean Platelet Volume 7.5 fl (7.4-10.4); Monocytes # 0.9 K/mm3 (0.1-1.0); Monocytes % 8.3 % (1.7-9.3); Neutrophils # 5.8 K/mm3 (1.8-7.8); Neutrophils % 51.5 % (37.0-80.0); Platelet Count 526 K/mm3 (142-424); Red Blood Count 4.33 M/mm3 (4.20-5.40); Red Cell Distribution Width 21.2 % (11.5-17.5); White Blood Count 11.2 K/mm3 (4.8-10.8)
[2018-04-29 16:11] LABS: INR 1.53 (0.9-1.1); Prothrombin Time 15.6 seconds (9.4-11.8)
[2018-04-29 16:21] LABS: Alanine Aminotransferase 68 U/L (12-78); Albumin Level 3.3 gm/dL (3.4-5.0); Albumin/Globulin Ratio 0.7 (1.1-1.8); Alkaline Phosphatase 154 U/L (46-116); Anion Gap 12.2 mEq/L (5-15); Aspartate Amino Transferase 45 U/L (15-37); Bilirubin,Total 0.4 mg/dL (0.2-1.0); Blood Urea Nitrogen 62 mg/dL (7-18); CKMB Relative Index 2.8 U/L (0-4.0); Calcium 9.7 mg/dL (8.5-10.1); Carbon Dioxide 25 mmol/L (21.0-32.0); Chloride 94 mmol/L (98-107); Creatine Kinase 79 U/L (26-192); Creatine Kinase MB 2.2 ng/ml (0.0-3.6); Creatinine Clearance Estimated 28 mL/min (0-300); Creatinine,Serum 2.07 mg/dL (0.55-1.02); Digoxin 1.17 ng/mL (1.15-2.56); Estimated Glomerular Filt Rate 24 ml/min (>60); GFR (African American) 29 ML/MIN (>60); Globulin 4.7 gm/dl (1.3-3.2); Glucose 82 mg/dL (74-106); Potassium 5.2 mmoL/L (3.5-5.1); Sodium 126 mmol/L (136-145); Troponin I 0.03 ng/ml (0.00-0.06)
--- NOTE | 2018-04-29 16:26 | PC.NURSE ---
MD Fuller notified of PT of 37.3
--- NOTE | 2018-04-29 16:27 | PC.NURSE ---
Dr Fuller speaking with Dr Carpio with the [facility] stroke team
[2018-04-29 16:29] LABS: Activated Partial Thrombo Time 37.3 seconds (23.6-34.0)
--- NOTE | 2018-04-29 16:31 | PC.NURSE ---
Pt has been accepted to [facility] stroke team, pt is not a candidate for [facility] per [facility] , Dr Fuller advises pt can go BLS to [facility]
--- NOTE | 2018-04-29 17:04 | PC.NURSE ---
Report called to Valencia ROSE at [facility]
[2018-04-29 17:07] VITALS: BP 139/66; PULSE 58; RESP 20; TEMP 36.2; O2SAT 98
== END 2018-04-29 17:09 | disposition short-term general hospital (02) ==
PROVIDERS: Emergency Provider Emergency Medicine
DX: I48.2 Chronic atrial fibrillation (principal); E78.5 Hyperlipidemia, unspecified; I25.10 Atherosclerotic heart disease of native coronary artery without angina pectoris; I69.328 Other speech and language deficits following cerebral infarction; Z87.891 Personal history of nicotine dependence; Z79.01 Long term (current) use of anticoagulants; Z93.1 Gastrostomy status; Z88.6 Allergy status to analgesic agent; Z96.642 Presence of left artificial hip joint
CPT/HCPCS: 70450; 71045; 80053; 80162; 82550; 82553; 83735; 84484; 85025; 85610; 85730; 93005; 99284